=== PATIENT | male | born 1960 | race Caucasian/White ===

== ENCOUNTER 2018-05-27 11:06 | Emergency (ER) | payer OTHER ==
[2018-05-27] MEDS: METHYLPREDNISOLONE 125 MG INJ IM (13:14)
== END 2018-05-27 13:26 | disposition home or self-care (01) ==
LOC: FTE 11:06
DX: M54.12 Radiculopathy, cervical region (principal); E11.9 Type 2 diabetes mellitus without complications; I10 Essential (primary) hypertension; Z87.891 Personal history of nicotine dependence
CPT/HCPCS: 72040; 73030; 93005; 96372; 99284-25